=== PATIENT | male | born 1945 | race Caucasian/White ===

== ENCOUNTER 2020-11-10 09:43 | Outpatient (CLI) | payer MEDICARE, OTHER, SELFPAY ==
[2020-11-10 10:42] LABS: Basophils Absolute Auto 0.1 K/mm3 (0.0-0.1); Basophils Percent Auto 1.1 % (0.2-1.2); Eosinophils Absolute Auto 0.1 K/mm3 (0-0.3); Eosinophils Percent Auto 1.1 % (0-4.4); Hematocrit 35.5 % (42.0-52.0); Hemoglobin 11.5 g/dL (14.0-18.0); Immature Granulocyte Absolute 0.01 K/mm3 (0.00-0.031); Immature Granulocyte Percent A 0.2 % (0-0.5); Lymphocytes Absolute Auto 1.55 K/mm3 (0.9-3.2); Lymphocytes Percent Auto 28.4 % (18.3-44.2); Mean Corpuscular HGB Conc 32.4 g/dl (32-36); Mean Corpuscular Hemoglobin 29.6 pg (26-34); Mean Corpuscular Volume 91.3 fl (80-100); Mean Platelet Volume 9.4 fl (7.4-10.4); Monocytes Absolute Auto 0.6 K/mm3 (0.1-0.6); Monocytes Percent Auto 10.4 % (2.6-8.5); Neutrophils Absolute Auto 3.2 K/mm3 (1.3-6.7); Neutrophils Percent Auto 58.8 % (45.5-73.1); Platelet Count Result 206 k/mm3 (150-375); Red Blood Count 3.89 M/mm3 (4.6-6.20); Red Cell Distribution Width 13.2 % (11.5-14.5); White Blood Count 5.5 K/mm3 (4.5-10.0)
== END 2020-11-10 09:44 | disposition home or self-care (01) ==
LOC: ANHLAB 09:54
PROVIDERS: PCP Family Medicine Adolescent Medicine; Referring Provider Internal Medicine Gastroenterology; Visit Provider Physician Assistant Medical
DX: D64.9 Anemia, unspecified (principal)
CPT/HCPCS: 36415; 85025

== ENCOUNTER 2020-12-03 00:19 | Outpatient (CLI) | payer MEDICARE, OTHER, SELFPAY ==
[2020-12-04 00:20] LABS: SARS-CoV-2 RNA PCR Negative
== END 2020-12-03 00:20 | disposition home or self-care (01) ==
LOC: ANHCOVIDDT 00:20
PROVIDERS: Family Provider Family Medicine Adolescent Medicine; PCP Family Medicine Adolescent Medicine; Visit Provider Internal Medicine Gastroenterology
DX: Z01.812 Encounter for preprocedural laboratory examination (principal); Z20.822 Contact with and (suspected) exposure to COVID-19
CPT/HCPCS: C9803; U0003; U0005

== ENCOUNTER 2020-12-07 00:41 | Day surgery (SDC) | payer MEDICARE, OTHER, SELFPAY ==
[2020-11-21 14:28] VITALS: BMI 33.5
--- NOTE | 2020-12-06 13:48 | WPDANESEPPF ---
Anes - Initial Pre Proc Eval Procedure: Operation Date: 12/07/20 11:30 Proposed Procedures p Colonoscopy - Joesph Arreguin DO Date/Time: 12/06/20 13:48 Surgeon: Joesph Arreguin DO Pre Op Diagnosis: diverticulosis, hematochezia Patient Data Age: 75 Gender: M Height: 1.8 m Weight: 109 kg Allergies Allergy/AdvReac Type Severity Reaction Status Date / Time No Known Allergies Allergy Verified 12/07/20 10:30 Home Medications Medication Instructions Recorded Confirmed Type carvedilol 6.25 mg PO BID 11/21/20 11/24/20 History finasteride [Proscar] 5 mg PO DAILY 11/21/20 11/24/20 History simvastatin 40 mg PO DAILY 11/21/20 11/24/20 History Patient hx anesthesia problems: none Family hx anesthesia problems: none [facility] Past Medical History Medical History (Updated 11/24/20 @ 16:04 by HEATHER Marin) Abnormality of heart beat Chills Hair loss Hearing loss High cholesterol Hypertension Left knee pain Prepatellar bursitis Wears glasses Social History Social History Smoking status: Former smoker Smoking end date: 11/11/97 Alcohol intake: never Substance use type: does not use Living arrangements: with family Gender identity (if verbalized by the patient): Male Spiritual care concerns: No Anes - Eval Final PreProcedure Day of Procedure 12/06/20 13:48 Patient weight: obese Heart: regular rate and rhythm Lungs: clear to auscultation and normal air movement Airway: Mallampati scale class II Neurological: alert and oriented Last oral intake: >/= 8 hours ASA classification: III Emergent: no Anesthetic plan: proceed Anesthesia type and monitoring: general GIVS and standard monitoring Informed Consent: The patient's anesthetic plan and its attendant risks and benefits were discussed with the patient/family/POA. Questions were solicited and answers provided to the satisfaction of the patient/family/POA.
[2020-12-07 10:31] VITALS: BP 175/90; PULSE 62; RESP 18; TEMP 36.9; O2SAT 99; BMI 33.3
[2020-12-07] MEDS: LACTATED RINGERS 1,000 ML 150 ML IV CONT (10:43)
--- NOTE | 2020-12-07 11:09 | PM.IMHP ---
H&P: HPI History of Present Illness Date/Time: 12/07/20 11:09 Chief Complaint: Reason for visit colonoscop Narrative: Reason for visit is colonoscopy. This very pleasant gentleman seen in consultation at the request of the primary physician. Impression: Year old gentleman with a recent episode of rectal bleeding and diarrhea. Evaluate for underlying inflammatory neoplastic disease. He does have a history adenomatous colon polyps. HTN. HLD. BPH. Obesity. Recommendation: Colonoscopy. History: This very pleasant gentleman has a history of adenomatous colon polyps. He presents with a recent episode of diarrhea and rectal bleeding. He had 1 episode of rectal bleeding which consisted of blood on the tissue paper and blood in the stool. The bleeding ceased but he had diarrhea. Presently at this time is doing better. No significant abdominal pain, fever, chills, night sweats, nausea, vomiting, indigestion or heartburn. Patient does not know if he has lost any weight. He is here for colonoscopy. The patient does complain of a productive cough of mckeon colored phlegm. He also has difficulty with hearing. Physical examination: General: very pleasant patient in no acute distress. HEENT: Head was normocephalic sclerae is clear mouth without masses neck was supple. Heart: Rate rhythm regular without S3 or S4. Lungs: CTA. Abdomen: Soft with no guarding or rigidity. Bowel sounds were active. Neurologic: Cranial nerves 2 through 12 intact. No focal defects. No clonus. Musculoskeletal system: Revealed no joint tenderness or swelling no muscle atrophy. Extremities: Reveal no significant edema. Skin: Warm and dry with normal turgor. Mental status: intact. Patient is alert and oriented. Review of Systems Review of Systems: All systems reviewed & are unremarkable except as noted in HPI and below PMFSH Past Medical History Medical History (Updated 12/07/20 @ 11:09 by Joesph Arreguin DO) Adenomatous colon polyp BPH (benign prostatic hyperplasia) Hair loss Hearing loss High cholesterol Hypertension Obesity Surgical History Surgical History (Updated 12/07/20 @ 11:09 by Joesph Arreguin DO) Hx of colonoscopy Social History Social History Smoking status: Former smoker Smoking end date: 11/11/97 Alcohol intake: never Substance use type: does not use Living arrangements: with family Gender identity (if verbalized by the patient): Male Spiritual care concerns: No Meds Home Medications and Allergies Home Medications Medication Instructions Recorded Confirmed Type carvedilol 6.25 mg PO BID 11/21/20 11/24/20 History finasteride [Proscar] 5 mg PO DAILY 11/21/20 11/24/20 History simvastatin 40 mg PO DAILY 11/21/20 11/24/20 History Allergies Allergy/AdvReac Type Severity Reaction Status Date / Time No Known Allergies Allergy Verified 12/07/20 10:30 Vital Signs Vital Signs - 24 hr 12/07/20 10:31 Temperature 36.9 C Pulse Rate 62 Respiratory Rate 18 Blood Pressure 175/90 H Pulse Oximetry 99
[2020-12-07 11:35] VITALS: BP 90/55; PULSE 58; RESP 17; O2SAT 92
[2020-12-07 11:45] VITALS: BP 95/59; PULSE 58; RESP 11; O2SAT 92
[2020-12-07 11:55] VITALS: BP 151/83; PULSE 57; RESP 11; O2SAT 97
== END 2020-12-07 12:15 | disposition home or self-care (01) ==
PROVIDERS: Family Provider Family Medicine Adolescent Medicine; PCP Family Medicine Adolescent Medicine; Visit Provider Internal Medicine Gastroenterology
PROC: 0DJD8ZZ Inspection of Lower Intestinal Tract, Via Natural or Artificial Opening Endoscopic (ICD-10-PCS; CPT 45378; principal; 2020-12-07 11:30)
DX: R19.7 Diarrhea, unspecified (principal); D12.3 Benign neoplasm of transverse colon; K62.1 Rectal polyp; K63.5 Polyp of colon; K62.5 Hemorrhage of anus and rectum; K57.30 Diverticulosis of large intestine without perforation or abscess without bleeding; K64.8 Other hemorrhoids; I10 Essential (primary) hypertension; E78.00 Pure hypercholesterolemia, unspecified; N40.0 Benign prostatic hyperplasia without lower urinary tract symptoms; Z87.891 Personal history of nicotine dependence; E66.9 Obesity, unspecified; Z68.33 Body mass index [BMI] 33.0-33.9, adult
CPT/HCPCS: 45385; 45380; 88305; J2370; J2704; J7120